=== PATIENT | female | born 1945 | race Caucasian/White ===

== ENCOUNTER 2018-09-27 15:12 | Inpatient (IN) ==
--- NOTE | 2018-09-27 16:26 | ED ---
HPI General Chief Complaint: Abdominal Pain Stated Complaint: ABD Pain Time Seen by Provider: 09/27/18 16:15 Source: patient Mode of arrival: ambulatory Limitations: no limitations History of Present Illness HPI narrative: 73-year-old woman presents to the emergency department complaining of abdominal pain. She was in [place] recently where she is from. She reports while there she got 2 days of nausea vomiting diarrhea without significant felt well since she has been back. Over the past 4-5 days she has had worsening generalized abdominal pain, worse in the periumbilical region, no lateralization. She has been more fatigued. She is had more nausea. Bowel movements been normal. Last bowel movement was this morning. Appetite's been down. No other aggravating or alleviating factors. No other complaints. Related Data Home Medications Medication Instructions Recorded Confirmed amlodipine [Norvasc] 2.5 mg PO DAILY 09/27/18 09/27/18 fluticasone-salmeterol [Advair 1 puff INHALATION Q12H 09/27/18 09/27/18 Diskus] levothyroxine 88 mcg PO DAILY 09/27/18 09/27/18 Allergies Allergy/AdvReac Type Severity Reaction Status Date / Time No Known Allergies Allergy Verified 09/27/18 16:07 Review of Systems ROS: all other systems reviewed are negative [facility] Medical History Medical History Asthma (Acute) Hypertension (Acute) Hypothyroid (Acute) Surgical History Surgical History No history of previous surgery (Acute) Social History Social History Substance History: No History of Abuse Second Hand Smoke Exposure: No Smoking Status: Never smoker How Often Do You Have a Drink Containing Alcohol: Never Recent Travel in [facility] within the Last 8 Weeks: No Recent Out of Country Travel within the Last 8 Weeks: Yes Immunization History Tetanus Immunization: <5 Years Exam Narrative Exam Narrative: GENERAL: Well-appearing 73-year-old woman, no acute distress. SKIN: Focused skin assessment warm/dry. NECK: Trachea midline. No JVD. CARDIOVASCULAR: Regular rate and rhythm. No murmur appreciated. RESPIRATORY: No accessory muscle use. Clear to auscultation. Breath sounds equal bilaterally. GASTROINTESTINAL: Abdomen is flat and soft. Upper abdominal tenderness, especially in the epigastrium and right upper quadrant. Positive Paz's. MUSCULOSKELETAL: No obvious deformities. No clubbing. No cyanosis. No edema. NEUROLOGICAL: Awake and alert. No obvious cranial nerve deficits. Motor grossly within normal limits. Normal speech. PSYCHIATRIC: Appropriate mood and affect; insight and judgment normal. Course Initial Documented Vital Signs Temperature 98.5 F 09/27/18 15:19 Pulse Rate 88 09/27/18 15:19 Respiratory Rate 17 09/27/18 15:19 Blood Pressure 167/82 H 09/27/18 15:19 Pulse Oximetry 98 09/27/18 15:19 Last Documented Vital Signs Temperature 98.1 F 09/27/18 15:20 Pulse Rate 80 09/27/18 17:52 Respiratory Rate 16 09/27/18 18:22 Blood Pressure 157/80 H 09/27/18 15:20 Pulse Oximetry 98 09/27/18 17:52 Medical Decision Making [facility] Narrative Medical decision making narrative: Is a 73-year-old woman with generalized abdominal discomfort, nonlateralizing, ongoing for the past couple days. On exam she is tender in epigastrium, in the right upper quadrant, is also tender in the left. This is likely pancreatitis gastritis or cholecystitis. Will check labs, check right upper quadrant ultrasound, reassess. If negative, recommend treatment acid blockers, outpatient follow-up. EKG reveals sinus rhythm with a rate of 87. Lab work has been reviewed, notable for a troponin of 0.16. The patient is primarily having epigastric pain that radiates into the back. A CTA of the aorta has been ordered. The patient was given aspirin, morphine. Patient was signed out to Paulina Schmitz PA-C to follow-up on the CTA results , ultimately the patient will require admission. CTA reveals aorta normal caliber without dissection. Multiple tiny pulmonary nodules and a 2.6 x 1.8 cm nodule in the left axilla are noted. These can be followed by outpatient basis. The findings were discussed with the patient and her family members at bedside. I palpated the nodule in the left axilla. It is nodular, mobile, non-tender. I suspect a lipoma. 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 She also reports a history of pulmonary nodules in the past but will follow these on an outpatient basis. She will be provided with a copy of the CTA results on discharge. The patient and her family are agreeable to admission. I spoke with who agrees to accept the patient to the medicine service. Please see medicine notes for disposition. Medical Screen Exam Complete: Yes Emergency Medical Condition: Yes Lab Data Result diagrams: 09/27/18 16:46 09/27/18 16:46 Lab Results 09/27/18 09/27/18 Range/Units 16:46 16:46 WBC 10.7 (4.0-11.0) th/mm3 RBC 4.81 (4.00-5.30) mil/mm3 Hgb 14.1 (11.6-15.3) gm/dL Hct 41.7 (35.0-46.0) % MCV 86.6 (80.0-100.0) fL MCH 29.4 (27.0-34.0) pg MCHC 33.9 (32.0-36.0) % RDW 13.0 (11.6-17.2) % Plt Count 291 (150-450) th/mm3 MPV 9.0 (7.0-11.0) fL Neut % (Auto) 72.7 H (16.0-70.0) % Lymph % (Auto) 12.3 (9.0-44.0) % Emery % (Auto) 6.4 (0.0-8.0) % Eos % (Auto) 8.1 H (0.0-4.0) % Baso % (Auto) 0.5 (0.0-2.0) % Neut # (Auto) 7.8 H (1.8-7.7) th/mm3 Lymph # (Auto) 1.3 (1.0-4.8) th/mm3 Emery # (Auto) 0.7 (0.0-0.9) th/mm3 Eos # (Auto) 0.9 H (0.0-0.4) th/mm3 Baso # (Auto) 0.1 (0.0-0.2) th/mm3 WBC Differential . Differential Comment Auto diff final Sodium 132 L (136-145) meq/L Potassium 4.2 (3.5-5.1) meq/L Chloride 101 (98-107) meq/L Carbon Dioxide 24.3 (21.0-32.0) meq/L Anion Gap 7 (5-15) meq/L BUN 23 H (7-18) mg/dL Creatinine 0.59 (0.50-1.00) mg/dL Estimated GFR Greater than 89 (>89) mL/min Random Glucose 105 (74-106) mg/dL Calcium 8.9 (8.5-10.1) mg/dL Magnesium 2.2 (1.5-2.5) mg/dL Total Bilirubin 1.0 (0.2-1.0) mg/dL AST 38 H (15-37) U/L ALT 64 H (10-53) U/L Alkaline Phosphatase 217 H (45-117) U/L Troponin I 0.16 H (0.02-0.05) ng/mL Total Protein 7.5 (6.4-8.2) g/dL Albumin 3.5 (3.4-5.0) g/dL Lipase 76 (73-393) U/L Imaging Data Radiologist's impression: Gallbladder Ultrasound 09/27/18 16:23 CONCLUSION: 1. Gallbladder sludge. 2. Right renal cyst. 3. Echogenic portal triads may indicate underlying hepatitis. This can be correlated with laboratory values. Thoracic Aorta CT 09/27/18 17:52 CONCLUSION: 1. Aorta is normal in caliber without dissection. 2. Multiple tiny pulmonary nodules. These measure 2 to 5 mm in size. Current Fleischner guidelines suggest a repeat CT of the thorax in 6-12 months to document stability. 3. 2.6 x 1.8 cm nodule within the left axilla adjacent to the left lateral margin of the pectoralis major muscle adjacent to the chest wall. This is nonspecific in its CT appearance. Clinical palpation of the nodule is suggested. An outpatient follow-up ultrasound of the left axilla could be considered as follow-up. Chest X-Ray 09/27/18 17:53 CONCLUSION: No acute findings. Discharge Plan Discharge Order Discharge Orders: ED Use Only Admit Order (Routine); Ordered 09/27/18 Ordered By: Paulina Schmitz Physicians Team ED Provider: Ace Gloria ED Midlevel Provider: Paulina Schmitz Primary Care Provider: Sylvia Piña Rxs /Orders / Referrals /Forms Prescriptions: No Action amlodipine [Norvasc] 2.5 mg Tablet 2.5 mg PO DAILY RF: 0 fluticasone-salmeterol [Advair Diskus] 100-50 mcg/dose Blister With Device 1 puff INHALATION Q12H RF: 0 levothyroxine 88 mcg Capsule 88 mcg PO DAILY RF: 0 Discharge Interventions Interventions: Vital Signs Last Done: 09/27/18 15:20 Status ED Status: Pending Admission
[2018-09-27] MEDS ORDERED: Aluminum/Magnesium/Simethacone Susp 30 ML UDC PO ONE (16:29)
[2018-09-27] MEDS ORDERED: Famotidine PF Inj 20 MG/2 ML Vial IV.PUSH ONE (16:29)
[2018-09-27 16:59] LABS: Baso # (Auto) 0.1 th/mm3 (0.0-0.2); Baso % (Auto) 0.5 % (0.0-2.0); Eos # (Auto) 0.9 th/mm3 (0.0-0.4); Eos % (Auto) 8.1 % (0.0-4.0); Hematocrit 41.7 % (35.0-46.0); Hemoglobin 14.1 gm/dL (11.6-15.3); Lymph # (Auto) 1.3 th/mm3 (1.0-4.8); Lymph % (Auto) 12.3 % (9.0-44.0); Mean Corpuscular HGB Conc 33.9 % (32.0-36.0); Mean Corpuscular Hemoglobin 29.4 pg (27.0-34.0); Mean Corpuscular Volume 86.6 fL (80.0-100.0); Mono # (Auto) 0.7 th/mm3 (0.0-0.9); Mono % (Auto) 6.4 % (0.0-8.0); Neut # (Auto) 7.8 th/mm3 (1.8-7.7); Neut % (Auto) 72.7 % (16.0-70.0); Platelet Count 291 th/mm3 (150-450); Red Blood Count 4.81 mil/mm3 (4.00-5.30); White Blood Count 10.7 th/mm3 (4.0-11.0)
[2018-09-27 17:23] LABS: Albumin 3.5 g/dL (3.4-5.0); Anion Gap 7 meq/L (5-15); Aspartate Aminotransferase 38 U/L (15-37); Blood Urea Nitrogen 23 mg/dL (7-18); Calcium 8.9 mg/dL (8.5-10.1); Carbon Dioxide 24.3 meq/L (21.0-32.0); Chloride 101 meq/L (98-107); Glomerular Filtration Rate Greater Than 89 mL/min (>89); Glucose,Random 105 mg/dL (74-106); Lipase 76 U/L (73-393); Magnesium 2.2 mg/dL (1.5-2.5); Potassium 4.2 meq/L (3.5-5.1); Sodium 132 meq/L (136-145)
[2018-09-27 17:29] LABS: Alanine Aminotransferase 64 U/L (10-53); Alkaline Phosphatase 217 U/L (45-117); Total Protein 7.5 g/dL (6.4-8.2); Troponin I 0.16 ng/mL (0.02-0.05)
[2018-09-27] MEDS ORDERED: Morphine Inj 4 MG/ML Vial IV.PUSH ONE (17:48)
--- NOTE | 2018-09-27 17:53 | US ---
EXAM DATE: 09/27/2018 5:49 PM EST AGE/SEX: 73 years / Female INDICATIONS: Right upper quadrant pain. CLINICAL DATA: This is the patient's initial encounter. Patient reports that signs and symptoms have been present for 4 - 6 days and indicates a pain score of 9/10. MEDICAL/SURGICAL HISTORY: Hypertension. Hypothyroidism. Asthma. None. COMPARISON: No prior exams available for comparison. MEASUREMENTS: Liver:__ 16.6 cm. Common Bile Duct:__ 2mm. FINDINGS: Liver: No biliary ductal dilatation. The portal triads are echogenic. This can be seen with hepatiti s. The main portal vein is patent with hepatopedal flow. Portal Vein: Hepatopedal flow seen in portal vein. Common Duct: No intraluminal mass or stone visualized. Gallbladder: Gallbladder demonstrates no wall thickening. There is a large amount of sludge seen wit hin the gallbladder. Pancreas: The visualized portions are within normal limits Right Kidney: 1.1 cm simple cyst at the midpole of right kidney. Other: None. CONCLUSION: 1. Gallbladder sludge. 2. Right renal cyst. 3. Echogenic portal triads may indicate underlying hepatitis. This can be correlated with laboratory values. Electronically signed by: Austin Celis MD Board Certified Radiologist 09/27/2018 5:52 PM EST
--- NOTE | 2018-09-27 19:02 | XR ---
EXAM DATE: 09/27/2018 6:45 PM EST AGE/SEX: 73 years / Female INDICATIONS: Chest pain. CLINICAL DATA: This is the patient's initial encounter. Patient reports that signs and symptoms have been present for 1 day and indicates a pain score of 2/10. MEDICAL/SURGICAL HISTORY: . Hypertension. Hypothyroidism. Asthma. None. COMPARISON: No prior exams available for comparison. FINDINGS: A single AP view of the chest demonstrates the lungs to be symmetrically aerated without evidence of mass, infiltrate or effusion. The cardiomediastinal contours are unremarkable except tortuous aorta. Osseous structures are intact. CONCLUSION: No acute findings. Electronically signed by: Juan Pablo Hebert MD Board Certified Radiologist 09/27/2018 7:01 PM EST
--- NOTE | 2018-09-27 19:06 | CT ---
EXAM DATE: 09/27/2018 6:54 PM EST AGE/SEX: 73 years / Female INDICATIONS: Fatigue and back pain CLINICAL DATA: This is the patient's initial encounter. Patient reports that signs and symptoms have been present for 1 day and indicates a pain score of 5/10. MEDICAL/SURGICAL HISTORY: Hypertension. Asthma. None. RADIATION DOSE: 5.48 CTDI (mGy) COMPARISON: No prior exams available for comparison. TECHNIQUE: Volumetric scanning was performed using a multi-row detector CT scanner during bolus infu telma of 70 ml Omnipaque 350 (iohexol) nonionic water-soluble contrast as a single exam dose. The da ta was post processed with a variety of visualization algorithms including full volume maximum intens ity projection, multi-planar sliding thin slab reformation, curved planar reformation, and surface re ndering techniques. Using automated exposure control and adjustment of the mA and/or kV according to patient size, radiation dose was kept as low as reasonably achievable to obtain optimal diagnostic q uality images. DICOM format image data is available electronically for review and comparison. FINDINGS: THORACIC/ABDOMINAL AORTA: The aorta is normal in caliber and course. No dissection, aneurysm, or occl usion. Inflow vessels are patent. The celiac, SMA, LAURA, and renal arteries are patent. 3 arch vessels are noted. They are patent. Mild calcified plaque involving the thoracic arch but no stenosis. HEART AND MEDIASTINUM: The heart is normal in size. A small amount of pericardial fluid is noted vert ically within the superior pericardial recess. No large pericardial effusion observed. No adenopathy. Pulmonary arteries are normal in caliber. LUNG PARENCHYMA: Multiple small scattered noncalcified pulmonary nodules are seen scattered throughou t both lungs but most pronounced within the left upper lobe. These range in size from 2 to 5 mm. The largest is involving the lateral right apex. No dominant mass. No acute infiltrate. No bronchiectasis . OTHER STRUCTURES: There is a 2.6 x 1.8 cm nodule within the left axilla. This is directly adjacent to the lateral margin of the pectoralis major muscle adjacent to the chest wall. Hounsfield units are 2 9. It is smoothly marginated. The remaining axillary structures are unremarkable bilaterally. Abdomin al visceral structures are unremarkable. CONCLUSION: 1. Aorta is normal in caliber without dissection. 2. Multiple tiny pulmonary nodules. These measure 2 to 5 mm in size. Current Fleischner guidelines s uggest a repeat CT of the thorax in 6-12 months to document stability. 3. 2.6 x 1.8 cm nodule within the left axilla adjacent to the left lateral margin of the pectoralis major muscle adjacent to the chest wall. This is nonspecific in its CT appearance. Clinical palpation of the nodule is suggested. An outpatient follow-up ultrasound of the left axilla could be considere d as follow-up. Electronically signed by: Derrick Mobley MD Board Certified Radiologist 09/27/2018 7:05 PM EST
[2018-09-27] MEDS ORDERED: Bisacodyl 10 MG Supp RECTAL PRN (19:32)
[2018-09-27] MEDS ORDERED: Acetaminophen 325 MG Tablet PO PRN (19:32)
[2018-09-27] MEDS: Sod Chloride 0.9% Inj 1,000 ML IV.CONT SCH (20:05)
[2018-09-27 21:42] LABS: Prothrombin Time 10.1 sec (9.8-11.6)
[2018-09-27 21:56] LABS: Troponin I 0.2 ng/mL (0.02-0.05)
[2018-09-27 23:38] LABS: Bilirubin,Urine Negative (Negative); Clarity,Urine Clear (Clear); Color,Urine Yellow (Yellw/Straw); Glucose,Urine (UA) Negative (Negative); Leukocyte Esterase,Urine Large (Negative); Mucus,Urine Few /lpf (Occasional); Nitrite,Urine Negative (Negative); Specific Gravity,Urine 1.045 (1.002-1.035); Squamous Epithelial Cell,Urine 4 /hpf (0-5)
--- NOTE | 2018-09-28 02:44 | P.HPIM ---
History of Present Illness Service: [facility] Primary Care Physician: Sylvia Piña Chief Complaint: Epigastric pain History of Present Illness: 73 y/o female with a history of HTN, asthma, and hypothyroidism presented to the ER with complaints of epigastric pain for the past 5 days. She states the pain is a constant, dull, 9/10, mid epigastric region, worse with food, with radiation that extends to her back, with nausea, upon examination her pain is decreased to a 3. She denies any fevers or chills. No changes in bowel movements, denies dysuria. Inpatient Certification Inpatient Certification: I certify that the inpatient services were ordered in accordance with Medicare regulations governing the order. This includes certification that hospital inpatient services are reasonable and necessary and in the case of services not specified as inpatient-only under 42 CFR 419.22(n), that they are appropriately provided as inpatient services in accordance to with the 2-midnight benchmark under 43 CFR 412.3(e) Estimated Total Length of Stay (Days): 2 Plans for Post Hospital Care: Home [facility] Medical History Medical History Asthma (Acute) Hypertension (Acute) Hypothyroid (Acute) Surgical History Surgical History No history of previous surgery (Acute) Family History Family History Other Heart disease Social History Social History Substance History: No History of Abuse Second Hand Smoke Exposure: No Smoking Status: Never smoker How Often Do You Have a Drink Containing Alcohol: Never Recent Travel in [facility] within the Last 8 Weeks: No Recent Out of Country Travel within the Last 8 Weeks: Yes Immunization History Tetanus Immunization: <5 Years Medications and Allergies Allergies Allergy/AdvReac Type Severity Reaction Status Date / Time No Known Allergies Allergy Verified 09/27/18 16:07 Home Medications Medication Instructions Recorded Confirmed Type amlodipine [Norvasc] 2.5 mg PO DAILY 09/27/18 09/27/18 History fluticasone-salmeterol [Advair 1 puff INHALATION Q12H 09/27/18 09/27/18 History Diskus] levothyroxine 88 mcg PO DAILY 09/27/18 09/27/18 History Active Medications: Active Medications Acetaminophen (Tylenol) 650 mg PO Q4H PRN PRN Reason: Temp > 100.4 Al Hydroxide/Mg Hydroxide (Milk Of Magnesia Liq) 30 ml PO Q12H PRN PRN Reason: Mild Constipation Bisacodyl (Dulcolax Supp) 10 mg RECTAL DAILY PRN PRN Reason: SEVERE CONSITIPATION Sodium Chloride (Ns Inj) 1,000 mls @ 100 mls/hr IV.CONT .Q10H [facility] Last Admin: 09/27/18 20:05 Dose: 100 mls/hr Lactulose (Lactulose Liq) 30 ml PO DAILY PRN PRN Reason: SEVERE CONSITIPATION Ondansetron HCl (Zofran Inj) 4 mg IV.PUSH Q6H PRN PRN Reason: NAUSEA OR VOMITING Sennosides (Senokot) 17.2 mg PO Q12H PRN PRN Reason: Moderate Constipation Sodium Chloride (Ns Flush) 2 ml IV.FLUSH BID [facility] Last Admin: 09/27/18 20:40 Dose: 2 ml Sodium Chloride (Ns Flush) 2 ml IV.FLUSH PRN PRN PRN Reason: FLUSH AFTER USING IV ACCESS Physical Exam Vital signs: Vital Signs 09/27/18 15:19 09/27/18 15:20 09/27/18 17:52 Temperature 98.5 F 98.1 F Pulse Rate 88 80 80 Respiratory Rate 17 17 Blood Pressure 167/82 H 157/80 H Pulse Oximetry 98 98 98 09/27/18 18:21 09/27/18 18:22 09/27/18 21:23 Temperature Pulse Rate 78 Respiratory Rate 17 16 16 Blood Pressure 126/71 Pulse Oximetry 97 Intake & Output 09/27/18 09/27/18 09/28/18 06:59 18:59 06:59 Weight 61.235 kg Other: # Voids 1 Narrative: GENERAL: well nourished in no distress SKIN: Warm and dry. no open lesions EYES: No scleral icterus. No injection or drainage. NECK: Supple, trachea midline. No JVD or lymphadenopathy. CARDIOVASCULAR: Regular rate and rhythm without murmurs, gallops, or rubs. RESPIRATORY: Breath sounds equal bilaterally. No accessory muscle use. GASTROINTESTINAL: Abdomen soft, epigastric tenderness, nondistended. MUSCULOSKELETAL: No cyanosis, or edema. Results Labs CBC & Chem 7: 09/27/18 16:46 09/27/18 16:46 Imaging Impressions Gallbladder Ultrasound 09/27/18 16:23 CONCLUSION: 1. Gallbladder sludge. 2. Right renal cyst. 3. Echogenic portal triads may indicate underlying hepatitis. This can be correlated with laboratory values. Thoracic Aorta CT 09/27/18 17:52 CONCLUSION: 1. Aorta is normal in caliber without dissection. 2. Multiple tiny pulmonary nodules. These measure 2 to 5 mm in size. Current Fleischner guidelines suggest a repeat CT of the thorax in 6-12 months to document stability. 3. 2.6 x 1.8 cm nodule within the left axilla adjacent to the left lateral margin of the pectoralis major muscle adjacent to the chest wall. This is nonspecific in its CT appearance. Clinical palpation of the nodule is suggested. An outpatient follow-up ultrasound of the left axilla could be considered as follow-up. Chest X-Ray 09/27/18 17:53 CONCLUSION: No acute findings. Caprini VTE Risk Assessment Caprini VTE Risk Assessment: No/Low Risk (score <= 1) Caprini Risk Assessment Model: Point Value = 1 Point Value = 2 Point Value = 3 Point Value = 5 Age 41-60 Minor surgery BMI > 25 kg/m2 Swollen legs Varicose veins or History of unexplained or recurrent spontaneous Oral contraceptives or hormone replacement Sepsis (< 1 month) Serious lung disease, including pneumonia (< 1 month) Abnormal pulmonary function Acute myocardial infarction Congestive heart failure (< 1 month) History of inflammatory bowel disease Medical patient at bed rest Age 61-74 Arthroscopic surgery Major open surgery (> 45 min) Laparoscopic surgery (> 45 min) Malignancy Confined to bed (> 72 hours) Immobilizing plaster cast Central venous access Age >= 75 History of VTE Family history of VTE Factor V Leiden Prothrombin [id number] Lupus anticoagulant Anticardiolipin antibodies Elevated serum homocysteine Heparin-induced thrombocytopenia Other congenital or acquired thrombophilia Stroke (< 1 month) Elective arthroplasty Hip, pelvis, or leg fracture Acute spinal cord injury (< 1 month) Prophylaxis Regimen: Total Risk Factor Score Risk Level Prophylaxis Regimen 0-1 Low Early ambulation 2 Moderate Order ONE of the following: *Sequential Compression Device (SCD) *Heparin 5000 units SQ BID 3-4 Higher Order ONE of the following medications: *Heparin 5000 units SQ TID *Enoxaparin/Lovenox 40 mg SQ daily (WT < 150 kg, CrCl > 30 mL/min) *Enoxaparin/Lovenox 30 mg SQ daily (WT < 150 kg, CrCl > 10-29 mL/min) *Enoxaparin/Lovenox 30 mg SQ BID (WT < 150 kg, CrCl > 30 mL/min) AND/OR *Sequential Compression Device (SCD) 5 or more Highest Order ONE of the following medications: *Heparin 5000 units SQ TID (Preferred with Epidurals) *Enoxaparin/Lovenox 40 mg SQ daily (WT < 150 kg, CrCl > 30 mL/min) *Enoxaparin/Lovenox 30 mg SQ daily (WT < 150 kg, CrCl > 10-29 mL/min) *Enoxaparin/Lovenox 30 mg SQ BID (WT < 150 kg, CrCl > 30 mL/min) AND *Sequential Compression Device (SCD) Assessment and Plan Plan 73 y/o female with a history of HTN, asthma, and hypothyroidism presented to the ER with complaints of epigastric pain for the past 5 days. Epigastric pain non specific Aorta CT reviewed and shows no dissection Gallbladder US shows sludge -HIDA scan -Pepcid IV Q12Hr -NPO Elevated troponin, atypical pain, troponin trended down -Consult cardiology for evaluation -Will hold on heparin drip for now HTN, chronic -Resume home medications -monitor vitals Hypothyroidism, chronic -Resume home medications DVT prophylaxis: SCDs
[2018-09-28] MEDS ORDERED: Sincalide Inj 1.2 MCG in Sodium Chlor 0.9% Inj 50 ML IV.SIG ONE (02:53)
[2018-09-28] MEDS: Sod Chloride 0.9% Inj 1,000 ML IV.CONT SCH ×3 (06:36→17:55)
[2018-09-28 07:53] LABS: Baso % (Auto) 0.4 % (0.0-2.0); Eos % (Auto) 11.8 % (0.0-4.0); Hematocrit 38.6 % (35.0-46.0); Hemoglobin 13.1 gm/dL (11.6-15.3); Lymph # (Auto) 1.6 th/mm3 (1.0-4.8); Lymph % (Auto) 19.9 % (9.0-44.0); Mean Corpuscular HGB Conc 33.8 % (32.0-36.0); Mean Corpuscular Hemoglobin 29.1 pg (27.0-34.0); Mean Platelet Volume 9.3 fL (7.0-11.0); Mono # (Auto) 0.6 th/mm3 (0.0-0.9); Mono % (Auto) 7.7 % (0.0-8.0); Neut % (Auto) 60.2 % (16.0-70.0); Platelet Count 265 th/mm3 (150-450); Red Blood Count 4.49 mil/mm3 (4.00-5.30); White Blood Count 8.2 th/mm3 (4.0-11.0)
[2018-09-28 08:21] LABS: Albumin 3.1 g/dL (3.4-5.0); Anion Gap 6 meq/L (5-15); Aspartate Aminotransferase 52 U/L (15-37); Blood Urea Nitrogen 17 mg/dL (7-18); Calcium 8.7 mg/dL (8.5-10.1); Carbon Dioxide 27.2 meq/L (21.0-32.0); Chloride 103 meq/L (98-107); Glomerular Filtration Rate Greater Than 89 mL/min (>89); Glucose,Random 91 mg/dL (74-106); Potassium 4.1 meq/L (3.5-5.1); Sodium 136 meq/L (136-145)
[2018-09-28 08:22] LABS: Alanine Aminotransferase 77 U/L (10-53)
[2018-09-28 08:24] LABS: Alkaline Phosphatase 253 U/L (45-117); Total Protein 6.9 g/dL (6.4-8.2)
[2018-09-28] MEDS ORDERED: amLODIPine 5 MG Tablet PO SCH (09:00)
--- NOTE | 2018-09-28 10:39 | P.PNIM ---
Subjective Interval history: 73 yo female with h/o hypothyroidism and HTN admitted for epigastric/chest pain radiating to the back found to have troponin elevation without ECG changes. This morning she feels well and has no chest/abdominal pain or shortness of breath. Physical Exam Vital signs: Vital Signs 09/27/18 15:19 09/27/18 15:20 09/27/18 17:52 Temperature 98.5 F 98.1 F Pulse Rate 88 80 80 Respiratory Rate 17 17 Blood Pressure 167/82 H 157/80 H Pulse Oximetry 98 98 98 09/27/18 18:21 09/27/18 18:22 09/27/18 21:23 Temperature Pulse Rate 78 Respiratory Rate 17 16 16 Blood Pressure 126/71 Pulse Oximetry 97 09/28/18 07:03 09/28/18 09:09 Temperature Pulse Rate 73 66 Respiratory Rate 18 18 Blood Pressure 174/84 H 156/76 H Pulse Oximetry 100 99 Intake & Output 09/27/18 09/28/18 09/28/18 18:59 06:59 18:59 Intake Total 1000 / 1000 Balance 1000 / 1000 Weight 61.235 kg Intake: IV 1000 / 1000 NS Inj 1,000 ML @ 100 mls/hr IV 1000 / 1000 .CONT .Q10H MARK Rx#:[id number] Other: # Voids 1 Narrative: GENERAL: WDWN adult female, NAD, comfortable SKIN: Warm and dry. no open lesions EYES: No scleral icterus. No injection or drainage. NECK: Supple, trachea midline. No JVD or lymphadenopathy. CARDIOVASCULAR: NRRR without murmurs, gallops, or rubs. RESPIRATORY: Breath sounds equal bilaterally. No crackles or wheezes. No accessory muscle use. GASTROINTESTINAL: Abdomen soft, mild epigastric tenderness, nondistended. MUSCULOSKELETAL: No cyanosis, or edema. Results - Labs CBC & Chem 7: 09/28/18 06:31 09/28/18 06:31 Laboratory Results - last 24 hr 09/27/18 09/27/18 09/27/18 16:46 16:46 16:46 WBC 10.7 RBC 4.81 Hgb 14.1 Hct 41.7 MCV 86.6 MCH 29.4 MCHC 33.9 RDW 13.0 Plt Count 291 MPV 9.0 Neut % (Auto) 72.7 H Lymph % (Auto) 12.3 [place] % (Auto) 6.4 Eos % (Auto) 8.1 H Baso % (Auto) 0.5 Neut # (Auto) 7.8 H Lymph # (Auto) 1.3 [place] # (Auto) 0.7 Eos # (Auto) 0.9 H Baso # (Auto) 0.1 WBC Differential . Differential Comment Auto diff final PT INR APTT Sodium 132 L Potassium 4.2 Chloride 101 Carbon Dioxide 24.3 Anion Gap 7 BUN 23 H Creatinine 0.59 Estimated GFR Greater than 89 Random Glucose 105 Calcium 8.9 Magnesium 2.2 Total Bilirubin 1.0 AST 38 H ALT 64 H Alkaline Phosphatase 217 H Total Creatine Kinase Cancelled Troponin I 0.16 H Total Protein 7.5 Albumin 3.5 Lipase 76 Urine Color Urine Clarity Urine pH Ur Specific Gray Urine Protein Urine Glucose (UA) Urine Ketones Urine Occult Blood Urine Nitrate Urine Bilirubin Urine Urobilinogen Ur Leukocyte Esterase Urine RBC Urine WBC Ur Squamous Epith Cells Urine Mucus Micro UA Comment Ur Microscopic Review Urine Culture Comments 09/27/18 09/27/18 09/27/18 20:35 20:35 23:00 WBC RBC Hgb Hct MCV MCH MCHC RDW Plt Count MPV Neut % (Auto) Lymph % (Auto) [place] % (Auto) Eos % (Auto) Baso % (Auto) Neut # (Auto) Lymph # (Auto) [place] # (Auto) Eos # (Auto) Baso # (Auto) WBC Differential Differential Comment PT 10.1 INR 1.0 APTT 29.0 Sodium Potassium Chloride Carbon Dioxide Anion Gap BUN Creatinine Estimated GFR Random Glucose Calcium Magnesium Total Bilirubin AST ALT Alkaline Phosphatase Total Creatine Kinase 52 Troponin I 0.20 H Total Protein Albumin Lipase Urine Color Yellow Urine Clarity Clear Urine pH 6.0 Ur Specific Gray 1.045 H Urine Protein Negative Urine Glucose (UA) Negative Urine Ketones 20 Urine Occult Blood Negative Urine Nitrate Negative Urine Bilirubin Negative Urine Urobilinogen Less than 2 Ur Leukocyte Esterase Large H Urine RBC 4 H Urine WBC 4 Ur Squamous Epith Cells 4 Urine Mucus Few H Micro UA Comment Culture not ind Ur Microscopic Review Not Reportable Urine Culture Comments Culture not ind 09/28/18 09/28/18 09/28/18 01:45 06:31 06:31 WBC 8.2 RBC 4.49 Hgb 13.1 Hct 38.6 MCV 86.0 MCH 29.1 MCHC 33.8 RDW 13.0 Plt Count 265 MPV 9.3 Neut % (Auto) 60.2 Lymph % (Auto) 19.9 [place] % (Auto) 7.7 Eos % (Auto) 11.8 H Baso % (Auto) 0.4 Neut # (Auto) 5.0 Lymph # (Auto) 1.6 [place] # (Auto) 0.6 Eos # (Auto) 1.0 H Baso # (Auto) 0.0 WBC Differential . Differential Comment Auto diff final PT INR APTT Sodium 136 Potassium 4.1 Chloride 103 Carbon Dioxide 27.2 Anion Gap 6 BUN 17 Creatinine 0.61 Estimated GFR Greater than 89 Random Glucose 91 Calcium 8.7 Magnesium Total Bilirubin 1.2 H AST 52 H ALT 77 H Alkaline Phosphatase 253 H Total Creatine Kinase Troponin I 0.14 H Total Protein 6.9 D Albumin 3.1 L Lipase Urine Color Urine Clarity Urine pH Ur Specific Gray Urine Protein Urine Glucose (UA) Urine Ketones Urine Occult Blood Urine Nitrate Urine Bilirubin Urine Urobilinogen Ur Leukocyte Esterase Urine RBC Urine WBC Ur Squamous Epith Cells Urine Mucus Micro UA Comment Ur Microscopic Review Urine Culture Comments - Imaging Impressions Gallbladder Ultrasound 09/27/18 16:23 CONCLUSION: 1. Gallbladder sludge. 2. Right renal cyst. 3. Echogenic portal triads may indicate underlying hepatitis. This can be correlated with laboratory values. Thoracic Aorta CT 09/27/18 17:52 CONCLUSION: 1. Aorta is normal in caliber without dissection. 2. Multiple tiny pulmonary nodules. These measure 2 to 5 mm in size. Current Fleischner guidelines suggest a repeat CT of the thorax in 6-12 months to document stability. 3. 2.6 x 1.8 cm nodule within the left axilla adjacent to the left lateral margin of the pectoralis major muscle adjacent to the chest wall. This is nonspecific in its CT appearance. Clinical palpation of the nodule is suggested. An outpatient follow-up ultrasound of the left axilla could be considered as follow-up. Chest X-Ray 09/27/18 17:53 CONCLUSION: No acute findings. Assessment and Plan - Assessment (1) Epigastric pain Code(s): R10.13 - Epigastric pain Status: Resolved (2) Elevated troponin Code(s): R74.8 - Abnormal levels of other serum enzymes Status: Acute (3) Hypothyroid Code(s): E03.9 - Hypothyroidism, unspecified Status: Chronic (4) Essential hypertension Code(s): I10 - Essential (primary) hypertension Status: Chronic (5) Pulmonary nodules Code(s): R91.8 - Other nonspecific abnormal finding of lung field Status: Acute - Plan 73 yo female admitted with: Epigastric Pain Clinically improved, still mildly tender LFTs slightly elevated but improving US abdomen showed changes which could be suggestive of hepatitis however history and exam not classic, other labs with no evidence of acute liver failure. Gallbladder with sludge but otherwise normal Troponin elevation TnI was ~0.15, has come down now ECG with NSR, no ST-T changes Clinically now asymptomatic CTA chest showed no dissection * No need to heparinize for now * Consult cardiology for recommendation - may need diagnostic catheterization, inpatient vs outpatient * Patient family known to Dr. Johnson who agreed to see her, appreciate input Pulmonary Nodules Noted incidentally on CTA * Recommended f/u CT chest in 6-12 months Essential Hypertension Not currently on medication (was on amlodipine but had a rash) BP slightly elevated in hospital, not in urgent/emergent range * F/u with PCP Hypothyroidism TSH slightly elevated, may need increased dose of Synthroid, unlikely that her current symptoms would be due to thyroid * Continue Synthroid at current dose * F/u with PCP FEN: Cardiac diet DVT: Lovenox PPX Disposition Likely DC in a.m. - Attending Attestation The exam, history, and the medical decision-making described in the above note were completed with the assistance of the resident physician. I reviewed and agree with the findings presented. I attest that I had a [id number] encounter with the patient on the same day, and personally performed and documented my assessment and findings in the medical record. Patient seen and examined. She reports epigastric pain has significantly improved. No shortness of breath or chest pressure. She has not tried a diet yet. GENERAL: This is a well-nourished, well-developed patient, in no apparent distress. CARDIOVASCULAR: Normal rate and regular rhythm without murmurs, gallops, or rubs. RESPIRATORY: Good respiratory efforts. Breath sounds equal and clear to auscultation bilaterally. GASTROINTESTINAL: Abdomen soft, mild tenderness to palpation in the midepigastric region. Normal active bowel sounds MUSCULOSKELETAL: Extremities without cyanosis, or edema. NEURO: Alert & Oriented x4 to person, place, time, situation. Moves all ext x4 PSYCH: Appropriate mood and affect. A/P: Patient admitted with epigastric pain, elevated cardiac enzymes with concern for ACS. Symptoms more related to gastritis. She is improving quickly. She was seen by cardiology and patient and family wish to proceed with outpatient stress test. Blood pressure is uncontrolled. Patient started on metoprolol. Continue to monitor. Will advance diet. If she continues to do well in the morning discharged home to follow-up outpatient with GI and cardiology. Follow-up LFTs in a.m. (3) Hypothyroid Qualifiers: Hypothyroidism type: unspecified Qualified Code(s): E03.9 - Hypothyroidism, unspecified
[2018-09-28] MEDS: Levothyroxine 88 MCG Tablet PO SCH (11:45)
[2018-09-28] MEDS: Famotidine PF Inj 20 MG/2 ML Vial IV.PUSH SCH ×2 (11:46→20:51)
--- NOTE | 2018-09-28 12:00 | NM ---
EXAM DATE: 09/28/2018 11:54 AM EST AGE/SEX: 73 years / Female INDICATIONS: Abdominal pain. CLINICAL DATA: This is the patient's initial encounter. Patient reports that signs and symptoms have been present for 4 - 6 days and indicates a pain score of 4/10. MEDICAL/SURGICAL HISTORY: Asthma. Hypertension. Hypothyroidism. Non-responsive. COMPARISON: No prior exams available for comparison. DOSE: 4.1 mCi Tc-99m mebrofenin i.v. Medication: 1.2 mcg Cholecystokinin IV No symptomatic response Cholecystokinin was administered by slow infusion over 8 minutes beginning at 60 minutes. minutes. TECHNIQUE: Following the intravenous administration of radiotracer, dynamic sequential images were pe rformed with continuous acquisition. Time-activity curves were generated. FINDINGS: Hepatic Kinetics: There is prompt uptake of radiotracer in the liver. No focal defects are seen. Ther e is normal rate of washout from the hepatic parenchyma. Biliary Clearance: Activity is first seen in the extrahepatic biliary system at 15 minutes. There is normal excretion into the small bowel. Gallbladder: Activity is first seen in the gallbladder at 20 minutes. Post-CCK: After CCK administration, there is emptying of the gallbladder with a 10% ejection fraction . Common bile duct kinetics are normal and there is no evidence of biliary obstruction. No symptomat ic response after cholecystokinin infusion. Biliary-Enteric Reflux: None observed. CONCLUSION: 1. Unremarkable HIDA scan except for poor asymptomatic contraction after CCK. Electronically signed by: Matty Glaser MD Board Certified Radiologist 09/28/2018 11:58 AM EST
[2018-09-28] MEDS: Budesonide-Formoterol 80/4.5 MCG 6.9 GM Inhaler INH SCH ×2 (12:01→20:52)
--- NOTE | 2018-09-28 13:47 | P.CONCA ---
History of Present Illness Service: Cardiology Consult date: 09/28/18 Reason for Consult: Elevated troponin Primary Care Provider: Sylvia Piña Chief Complaint: Epigastric pain History of Present Illness: Pleasant 73-year-old female with a past medical history of hypertension and hypothyroidism presented with complaints of bandlike upper abdominal pain that has been present for the past 5 days. She reports she returned from a recent stressful trip to [place] approximately 2 weeks ago upon returning she developed nausea vomiting and diarrhea, reports other family members also had similar symptoms. She denies any chest pain or shortness of breath. She admits to abdominal tenderness, when applying pressure, and belching, symptoms have been present for approximately 5 days, not worse with exertion. Gallbladder ultrasound does reveal some sludge, HIDA scan normal. LFTs elevated. Troponins mildly elevated, no EKG changes noted. Review of Systems All other systems reviewed negative except as stated in HPI Constitutional: Reports fatigue Gastrointestinal: Reports abdominal pain, Reports bloating, Reports change in stools, Reports vomiting PMFSH - History History Provided By: Patient - Medical History Medical History: Medical History (Last Reviewed 09/28/18 @ 02:55 by ALONZO Fitzgerald) Asthma Hypertension Hypothyroid - Surgical History Surgical History: Surgical History (Last Reviewed 09/28/18 @ 02:55 by ALONZO Fitzgerald) No history of previous surgery - Family History Family History: Family History (Last Reviewed 09/27/18 @ 16:26 by Matty Magdaleno MD) Other Heart disease - Tobacco History Second Hand Smoke Exposure: No Tobacco Use In Past 30 Days: No Smoking Status: Never smoker - Alcohol History How Often Do You Have a Drink Containing Alcohol: Never - Substance Use History Substance History: No History of Abuse - Travel History Recent Travel in the [facility] Within the Last 8 Weeks: No Recent Travel Out of the Country Within the Last 8 Weeks: No - Immunization History Tetanus Immunization: <5 Years Hx Influenza Vaccine This Season: Yes Medications and Allergies Allergies Allergy/AdvReac Type Severity Reaction Status Date / Time amlodipine Allergy Intermediate Rash, Verified 09/28/18 07:09 Localized Home Medications Medication Instructions Recorded Confirmed Type amlodipine [Norvasc] 2.5 mg PO DAILY 09/27/18 09/27/18 History fluticasone-salmeterol [Advair 1 puff INHALATION Q12H 09/27/18 09/27/18 History Diskus] levothyroxine 88 mcg PO DAILY 09/27/18 09/27/18 History Active Medications: Active Medications Acetaminophen (Tylenol) 650 mg PO Q4H PRN PRN Reason: Temp > 100.4 Last Admin: 09/28/18 06:34 Dose: 650 mg Al Hydroxide/Mg Hydroxide (Milk Of Magnesia Liq) 30 ml PO Q12H PRN PRN Reason: Mild Constipation Bisacodyl (Dulcolax Supp) 10 mg RECTAL DAILY PRN PRN Reason: SEVERE CONSITIPATION Budesonide/Formoterol Fumarate (Symbicort 80/4.5 Mcg Inh) 2 puff INH BID [facility] Last Admin: 09/28/18 12:01 Dose: Not Given Enalaprilat (Vasotec Inj) 1.25 mg IV.PUSH Q6H PRN PRN Reason: SBP>160, DBP>90 Last Admin: 09/28/18 13:07 Dose: 1.25 mg Famotidine (Pepcid Pf Inj) 20 mg IV.PUSH Q12HR [facility] Last Admin: 09/28/18 11:46 Dose: Not Given Sodium Chloride (Ns Inj) 1,000 mls @ 100 mls/hr IV.CONT .Q10H [facility] Last Admin: 09/28/18 13:07 Dose: 100 mls/hr Lactulose (Lactulose Liq) 30 ml PO DAILY PRN PRN Reason: SEVERE CONSITIPATION Levothyroxine Sodium (Synthroid) 88 mcg PO DAILY@0700 [facility] Last Admin: 09/28/18 11:45 Dose: Not Given Ondansetron HCl (Zofran Inj) 4 mg IV.PUSH Q6H PRN PRN Reason: NAUSEA OR VOMITING Sennosides (Senokot) 17.2 mg PO Q12H PRN PRN Reason: Moderate Constipation Sodium Chloride (Ns Flush) 2 ml IV.FLUSH BID [facility] Last Admin: 09/28/18 11:47 Dose: 2 ml Sodium Chloride (Ns Flush) 2 ml IV.FLUSH PRN PRN PRN Reason: FLUSH AFTER USING IV ACCESS Exam Vital signs: Vital Signs 09/27/18 15:19 09/27/18 15:20 09/27/18 17:52 Temperature 98.5 F 98.1 F Pulse Rate 88 80 80 Respiratory Rate 17 17 Blood Pressure 167/82 H 157/80 H Pulse Oximetry 98 98 98 09/27/18 18:21 09/27/18 18:22 09/27/18 21:23 Temperature Pulse Rate 78 Respiratory Rate 17 16 16 Blood Pressure 126/71 Pulse Oximetry 97 09/28/18 07:03 09/28/18 09:09 Temperature Pulse Rate 73 66 Respiratory Rate 18 18 Blood Pressure 174/84 H 156/76 H Pulse Oximetry 100 99 Intake & Output 09/27/18 09/28/18 09/28/18 18:59 06:59 18:59 Intake Total 1000 / 1000 1050 / 1050 Balance 1000 / 1000 1050 / 1050 Weight 61.235 kg Intake: IV 1000 / 1000 1050 / 1050 NS Inj 1,000 ML @ 100 mls/hr IV 1000 / 1000 1000 / 1000 .CONT .Q10H MARK Rx#:[id number] Other: # Voids 1 - Constitutional no acute distress, average body habitus, cooperative - Routine HEENT Exam Head: Present: normocephalic, atraumatic Eye: Present: EOMI, PERRL, normal accommodation ENT: Present: mucous membranes moist - Routine Neck Exam Present: supple - Routine Respiratory Exam Present: CTA bilaterally - Routine Cardiovascular Exam Present: RRR - Routine Abdominal Exam Present: soft, normoactive bowel sounds, tenderness - Routine Extremities Exam Present: full ROM, pulses intact - Routine Skin Exam Present: intact, warm - Routine Neurological Exam Present: alert, oriented X3 Results 09/28/18 06:31 09/28/18 06:31 Cardiac Enzymes 09/27/18 09/27/18 09/28/18 Range/Units 16:46 20:35 01:45 AST 38 H (15-37) U/L Troponin I 0.16 H 0.20 H 0.14 H (0.02-0.05) ng/mL 09/28/18 Range/Units 06:31 AST 52 H (15-37) U/L Troponin I (0.02-0.05) ng/mL Coagulation 09/27/18 Range/Units 20:35 PT 10.1 (9.8-11.6) sec APTT 29.0 (23.4-31.7) sec CBC 09/27/18 09/28/18 Range/Units 16:46 06:31 WBC 10.7 8.2 (4.0-11.0) th/mm3 RBC 4.81 4.49 (4.00-5.30) mil/mm3 Hgb 14.1 13.1 (11.6-15.3) gm/dL Hct 41.7 38.6 (35.0-46.0) % Plt Count 291 265 (150-450) th/mm3 Neut # (Auto) 7.8 H 5.0 (1.8-7.7) th/mm3 Lymph # (Auto) 1.3 1.6 (1.0-4.8) th/mm3 [place] # (Auto) 0.7 0.6 (0.0-0.9) th/mm3 Eos # (Auto) 0.9 H 1.0 H (0.0-0.4) th/mm3 Baso # (Auto) 0.1 0.0 (0.0-0.2) th/mm3 Comprehensive Metabolic Panel 09/27/18 09/28/18 Range/Units 16:46 06:31 Sodium 132 L 136 (136-145) meq/L Potassium 4.2 4.1 (3.5-5.1) meq/L Chloride 101 103 (98-107) meq/L Carbon Dioxide 24.3 27.2 (21.0-32.0) meq/L BUN 23 H 17 (7-18) mg/dL Creatinine 0.59 0.61 (0.50-1.00) mg/dL Calcium 8.9 8.7 (8.5-10.1) mg/dL AST 38 H 52 H (15-37) U/L ALT 64 H 77 H (10-53) U/L Alkaline Phosphatase 217 H 253 H (45-117) U/L Total Protein 7.5 6.9 D (6.4-8.2) g/dL Albumin 3.5 3.1 L (3.4-5.0) g/dL Intake and Output 09/27/18 09/28/18 09/28/18 22:59 06:59 14:59 Intake Total 1000 / 1000 1050 / 1050 Balance 1000 / 1000 1050 / 1050 Intake: IV 1000 / 1000 1050 / 1050 NS Inj 1,000 ML @ 100 mls/hr IV 1000 / 1000 1000 / 1000 .CONT .Q10H MARK Rx#:[id number] Other: # Voids 1 Weight 61.235 kg - Imaging and Cardiology Imaging: Impressions Gallbladder Ultrasound 09/27/18 16:23 CONCLUSION: 1. Gallbladder sludge. 2. Right renal cyst. 3. Echogenic portal triads may indicate underlying hepatitis. This can be correlated with laboratory values. Thoracic Aorta CT 09/27/18 17:52 CONCLUSION: 1. Aorta is normal in caliber without dissection. 2. Multiple tiny pulmonary nodules. These measure 2 to 5 mm in size. Current Fleischner guidelines suggest a repeat CT of the thorax in 6-12 months to document stability. 3. 2.6 x 1.8 cm nodule within the left axilla adjacent to the left lateral margin of the pectoralis major muscle adjacent to the chest wall. This is nonspecific in its CT appearance. Clinical palpation of the nodule is suggested. An outpatient follow-up ultrasound of the left axilla could be considered as follow-up. Chest X-Ray 09/27/18 17:53 CONCLUSION: No acute findings. Bile Acid Absorption NM 09/28/18 00:00 CONCLUSION: 1. Unremarkable HIDA scan except for poor asymptomatic contraction after CCK. EKG interpretations - Dysrhythmias Sinus rhythms and dysrhythmias: sinus rhythm Assessment and Plan - Plan Assessment Elevated troponin Abdominal pain Hypertension Plan -Patient is chest pain-free, mild elevation in troponins, no cardiac history, EKG normal. Nuclear stress test verses heart cath discussed in detail. -We will plan to start low-dose beta-tiana and baby aspirin. Will hold off on statin at this time due to elevated LFTs. -Currently n.p.o., continues to have abdominal pain, HIDA scan normal, abdominal ultrasound reveals sludge, LFTs elevated. Will consult GI. -Will need to advance diet prior to discharge. Patient was seen and evaluated by Dr. Johnson who participated in care management decision making The exam, history, and the medical decision-making described in the above note were completed with the assistance of the mid-level provider. I reviewed and agree with the findings presented. I attest that I had a [id number] encounter with the patient on the same day, and personally performed and documented my assessment and findings in the medical record. Has abdominal discomfort and LFTs and gallbladder sludge; no SOB or anginal pain will do cardiac pang for troponin. Discussed with Becky Boyd in detail. Code Status: Full Code Discussed Condition With: Dr. vazquez RN and patients grand daughter
[2018-09-28] MEDS ORDERED: Acetaminophen 325 MG Tablet PO ONE (13:50)
--- NOTE | 2018-09-28 19:33 | MR ---
EXAM DATE: 09/28/2018 7:23 PM EST AGE/SEX: 73 years / Female INDICATIONS: Abdominal pain. CLINICAL DATA: This is the patient's initial encounter. Patient reports that signs and symptoms have been present for 2 days and indicates a pain score of 5/10. MEDICAL/SURGICAL HISTORY: Hypertension. None. COMPARISON: [facility], CTA THOR ABD AORTA W CONTRAST W 3D, 09/27/2018. . TECHNIQUE: Multiplanar, multisequence images of the abdomen were obtained without contrast including dedicated cholangiographic images. FINDINGS: LIVER: The liver is homogeneous and normal in signal intensity with no focal defects. INTRAHEPATIC BILE DUCTS: There is no intrahepatic biliary ductal dilatation. COMMON BILE DUCT: The common bile duct is normal in caliber (diameter measures 5 mm.) Definitive eval uation is limited due to patient motion artifact. However there are no significant intrahepatic ducta l filling defects. GALLBLADDER: There is moderate pericholecystic fluid. Gallbladder is mildly distended. No significant gallbladder wall thickening or gallstones. PANCREAS: The pancreas appears normal in signal with no focal parenchymal abnormalities. The pancreat ic duct is normal in caliber with no filling defects, or obstructing lesions identified. CONCLUSION: 1. Limited examination due to patient motion. 2. Apparent interval development of pericholecystic fluid without gallstones or significant gallblad anuradha wall thickening. HIDA scan from earlier today demonstrates a patent cystic duct. Although pericho lecystic fluid is nonspecific, cannot exclude acalculus cholecystitis. Electronically signed by: Cristo Verdin MD Board Certified Radiologist 09/28/2018 7:32 PM EST
--- NOTE | 2018-09-28 20:21 | ECG ---
Date Performed: 09/27/2018 Time Performed: 16:55:25 PTAGE: 73 years EKG: Sinus rhythm NORMAL ECG PREVIOUS TRACING 09/27/2018 @ 16.55 Since the previous tracing, no significant change noted DOCTOR: Ernesto Johnson Interpretating Date/Time 09/28/2018 20:20:13
--- NOTE | 2018-09-28 20:22 | ECG ---
Date Performed: 09/28/2018 Time Performed: 02:25:57 PTAGE: 73 years EKG: Sinus rhythm NORMAL ECG PREVIOUS TRACING : 09/27/2018 16.55 Since the previous tracing, no significant change noted DOCTOR: Ernesto Johnson Interpretating Date/Time 09/28/2018 20:20:39
--- NOTE | 2018-09-28 20:22 | ECG ---
Date Performed: 09/28/2018 Time Performed: 07:08:05 PTAGE: 73 years EKG: Sinus rhythm NORMAL ECG PREVIOUS TRACING 09/28/18 @ 02.25.57 Since the previous tracing, no significant change noted DOCTOR: Ernesto Johnson Interpretating Date/Time 09/28/2018 20:21:41
[2018-09-28] MEDS: Metoprolol Tartrate 25 MG Tablet PO SCH (20:52)
--- NOTE | 2018-09-28 21:22 | P.CONGI ---
History of Present Illness Consult date: 09/28/18 Consult reason: Abdominal pain with elevated LFTs Chief complaint: Elevated troponin, epigastric pain History of Present Illness: Patient is a pleasant 73-year-old female with past medical history significant for hypertension and hypothyroidism. Patient also has met history significant for asthma. Patient denies significant surgical history. Patient presented to [facility] with complaint of upper abdominal bandlike pain onset 5 days ago. Patient also endorses she returned from a trip to [place] about 2 weeks ago and then developed nausea vomiting with diarrhea. She states other family has had similar symptoms. Patient denies fever or chills. Upon consultation, she had endorses both left and right upper quadrant abdominal tenderness on palpation. Patient denies chest pain or shortness of breath. Gallbladder ultrasound reveals sludge, HIDA scan within normal limits. LFTs were noted to be elevated as were troponin. Patient denies use of alcohol or tobacco products. Patient denies IV drug use or high risk sexual behaviors. Our service has been consulted to evaluate patient for elevated LFTs and abdominal discomfort. Review of Systems All other systems reviewed negative except as stated in HPI PMFSH - History History Provided By: Patient - Medical History Medical History: Medical History (Last Reviewed 09/28/18 @ 02:55 by ALONZO Fitzgerald) Asthma Hypertension Hypothyroid - Surgical History Surgical History: Surgical History (Last Reviewed 09/28/18 @ 02:55 by ALONZO Fitzgerald) No history of previous surgery - Family History Family History: Family History (Last Reviewed 09/27/18 @ 16:26 by Matty Magdaleno MD) Other Heart disease - Tobacco History Second Hand Smoke Exposure: No Tobacco Use In Past 30 Days: No Smoking Status: Never smoker - Alcohol History How Often Do You Have a Drink Containing Alcohol: Never - Substance Use History Substance History: No History of Abuse - Travel History Recent Travel in the [place] Within the Last 8 Weeks: No Recent Travel Out of the Country Within the Last 8 Weeks: No - Immunization History Tetanus Immunization: <5 Years Hx Influenza Vaccine This Season: Yes Medications and Allergies Active Medications: Active Medications Acetaminophen (Tylenol) 650 mg PO Q4H PRN PRN Reason: Temp > 100.4 Last Admin: 09/28/18 06:34 Dose: 650 mg Al Hydroxide/Mg Hydroxide (Milk Of Magnyael Liq) 30 ml PO Q12H PRN PRN Reason: Mild Constipation Aspirin (Ecotrin) 81 mg PO DAILY [facility] Bisacodyl (Dulcolax Supp) 10 mg RECTAL DAILY PRN PRN Reason: SEVERE CONSITIPATION Budesonide/Formoterol Fumarate (Symbicort 80/4.5 Mcg Inh) 2 puff INH BID [facility] Last Admin: 09/28/18 20:52 Dose: Not Given Enalaprilat (Vasotec Inj) 1.25 mg IV.PUSH Q6H PRN PRN Reason: SBP>160, DBP>90 Last Admin: 09/28/18 13:07 Dose: 1.25 mg Famotidine (Pepcid Pf Inj) 20 mg IV.PUSH Q12HR [facility] Last Admin: 09/28/18 20:51 Dose: Not Given Sodium Chloride (Ns Inj) 1,000 mls @ 100 mls/hr IV.CONT .Q10H [facility] Last Admin: 09/28/18 17:55 Dose: Not Given Lactulose (Lactulose Liq) 30 ml PO DAILY PRN PRN Reason: SEVERE CONSITIPATION Levothyroxine Sodium (Synthroid) 88 mcg PO DAILY@0700 [facility] Last Admin: 09/28/18 11:45 Dose: Not Given Metoprolol Tartrate (Lopressor) 25 mg PO BID [facility] Last Admin: 09/28/18 20:52 Dose: 25 mg Ondansetron HCl (Zofran Inj) 4 mg IV.PUSH Q6H PRN PRN Reason: NAUSEA OR VOMITING Sennosides (Senokot) 17.2 mg PO Q12H PRN PRN Reason: Moderate Constipation Sodium Chloride (Ns Flush) 2 ml IV.FLUSH BID [facility] Last Admin: 09/28/18 20:52 Dose: 2 ml Sodium Chloride (Ns Flush) 2 ml IV.FLUSH PRN PRN PRN Reason: FLUSH AFTER USING IV ACCESS Allergies Allergy/AdvReac Type Severity Reaction Status Date / Time amlodipine Allergy Intermediate Rash, Verified 09/28/18 07:09 Localized Home Medications Medication Instructions Recorded Confirmed Type amlodipine [Norvasc] 2.5 mg PO DAILY 09/27/18 09/27/18 History fluticasone-salmeterol [Advair 1 puff INHALATION Q12H 09/27/18 09/27/18 History Diskus] levothyroxine 88 mcg PO DAILY 09/27/18 09/27/18 History Exam Vital signs: Vital Signs 09/27/18 21:23 09/28/18 07:03 09/28/18 09:09 Temperature Pulse Rate 78 73 66 Respiratory Rate 16 18 18 Blood Pressure 126/71 174/84 H 156/76 H Pulse Oximetry 97 100 99 09/28/18 12:00 09/28/18 16:00 09/28/18 20:00 Temperature 97.7 F 97.9 F 97.0 F L Pulse Rate 72 84 76 Respiratory Rate 16 16 18 Blood Pressure 176/77 H 142/79 H 133/69 Pulse Oximetry 95 93 L 95 Intake & Output 09/28/18 09/28/18 09/29/18 06:59 18:59 06:59 Intake Total 1000 / 1000 1290 / 1290 Output Total 200 / 200 Balance 1000 / 1000 1090 / 1090 Intake: IV 1000 / 1000 1050 / 1050 NS Inj 1,000 ML @ 100 mls/hr IV 1000 / 1000 1000 / 1000 .CONT .Q10H MARK Rx#:[id number] Oral 240 / 240 Output: Urine 200 / 200 Other: # Voids 1 1 # Bowel Movements 0 - Constitutional no acute distress, average body habitus, cooperative - Routine HEENT Exam Head: Present: normocephalic Eye: Absent: conjunctival icterus ENT: Present: mucous membranes moist - Routine Neck Exam Present: supple - Routine Respiratory Exam Present: CTA bilaterally. Absent: accessory muscle use - Routine Cardiovascular Exam Present: RRR - Routine Abdominal Exam Present: soft, normoactive bowel sounds, tenderness. Absent: distended, guarding, firm - Routine Extremities Exam Absent: edema - Routine Skin Exam Present: dry, warm. Absent: pallor, jaundice - Routine Neurological Exam Present: alert, oriented X3 Results - Labs CBC & Chem 7: 09/28/18 06:31 09/28/18 06:31 Labs: Laboratory Results - last 24 hr 09/27/18 09/27/18 09/27/18 20:35 20:35 23:00 WBC RBC Hgb Hct MCV MCH MCHC RDW Plt Count MPV Neut % (Auto) Lymph % (Auto) [place] % (Auto) Eos % (Auto) Baso % (Auto) Neut # (Auto) Lymph # (Auto) [place] # (Auto) Eos # (Auto) Baso # (Auto) WBC Differential Differential Comment PT 10.1 INR 1.0 APTT 29.0 Sodium Potassium Chloride Carbon Dioxide Anion Gap BUN Creatinine Estimated GFR Random Glucose Calcium Total Bilirubin AST ALT Alkaline Phosphatase Total Creatine Kinase 52 Troponin I 0.20 H Total Protein Albumin TSH Urine Color Yellow Urine Clarity Clear Urine pH 6.0 Ur Specific [place] 1.045 H Urine Protein Negative Urine Glucose (UA) Negative Urine Ketones 20 Urine Occult Blood Negative Urine Nitrate Negative Urine Bilirubin Negative Urine Urobilinogen Less than 2 Ur Leukocyte Esterase Large H Urine RBC 4 H Urine WBC 4 Ur Squamous Epith Cells 4 Urine Mucus Few H Micro UA Comment Culture not ind Ur Microscopic Review Not Reportable Urine Culture Comments Culture not ind 09/28/18 09/28/18 09/28/18 01:45 06:31 06:31 WBC 8.2 RBC 4.49 Hgb 13.1 Hct 38.6 MCV 86.0 MCH 29.1 MCHC 33.8 RDW 13.0 Plt Count 265 MPV 9.3 Neut % (Auto) 60.2 Lymph % (Auto) 19.9 [place] % (Auto) 7.7 Eos % (Auto) 11.8 H Baso % (Auto) 0.4 Neut # (Auto) 5.0 Lymph # (Auto) 1.6 [place] # (Auto) 0.6 Eos # (Auto) 1.0 H Baso # (Auto) 0.0 WBC Differential . Differential Comment Auto diff final PT INR APTT Sodium 136 Potassium 4.1 Chloride 103 Carbon Dioxide 27.2 Anion Gap 6 BUN 17 Creatinine 0.61 Estimated GFR Greater than 89 Random Glucose 91 Calcium 8.7 Total Bilirubin 1.2 H AST 52 H ALT 77 H Alkaline Phosphatase 253 H Total Creatine Kinase Troponin I 0.14 H Total Protein 6.9 D Albumin 3.1 L TSH Urine Color Urine Clarity Urine pH Ur Specific [place] Urine Protein Urine Glucose (UA) Urine Ketones Urine Occult Blood Urine Nitrate Urine Bilirubin Urine Urobilinogen Ur Leukocyte Esterase Urine RBC Urine WBC Ur Squamous Epith Cells Urine Mucus Micro UA Comment Ur Microscopic Review Urine Culture Comments 09/28/18 06:31 WBC RBC Hgb Hct MCV MCH MCHC RDW Plt Count MPV Neut % (Auto) Lymph % (Auto) [place] % (Auto) Eos % (Auto) Baso % (Auto) Neut # (Auto) Lymph # (Auto) [place] # (Auto) Eos # (Auto) Baso # (Auto) WBC Differential Differential Comment PT INR APTT Sodium Potassium Chloride Carbon Dioxide Anion Gap BUN Creatinine Estimated GFR Random Glucose Calcium Total Bilirubin AST ALT Alkaline Phosphatase Total Creatine Kinase Troponin I Total Protein Albumin TSH 8.450 H Urine Color Urine Clarity Urine pH Ur Specific [place] Urine Protein Urine Glucose (UA) Urine Ketones Urine Occult Blood Urine Nitrate Urine Bilirubin Urine Urobilinogen Ur Leukocyte Esterase Urine RBC Urine WBC Ur Squamous Epith Cells Urine Mucus Micro UA Comment Ur Microscopic Review Urine Culture Comments - Imaging Impressions Bile Acid Absorption NM 09/28/18 00:00 CONCLUSION: 1. Unremarkable HIDA scan except for poor asymptomatic contraction after CCK. Cholangiopancreatography MRI 09/28/18 15:40 CONCLUSION: 1. Limited examination due to patient motion. 2. Apparent interval development of pericholecystic fluid without gallstones or significant gallbladder wall thickening. HIDA scan from earlier today demonstrates a patent cystic duct. Although pericholecystic fluid is nonspecific , cannot exclude acalculus cholecystitis. Assessment and Plan (1) Transaminitis Status: Acute Code(s): R74.0 - Nonspecific elevation of levels of transaminase and lactic acid dehydrogenase [LDH] (2) Epigastric pain Status: Resolved Code(s): R10.13 - Epigastric pain - Plan Patient is a pleasant 73-year-old female with past medical history significant for hypertension and hypothyroidism. Patient also has met history significant for asthma. Patient denies significant surgical history. Patient presented to [facility] with complaint of upper abdominal bandlike pain onset 5 days ago. Patient also endorses she returned from a trip to [place] about 2 weeks ago and then developed nausea vomiting with diarrhea. She states other family has had similar symptoms. Patient denies fever or chills. Upon consultation, she had endorses both left and right upper quadrant abdominal tenderness on palpation. Patient denies chest pain or shortness of breath. Gallbladder ultrasound reveals sludge, HIDA scan within normal limits. LFTs were noted to be elevated as were troponin. Patient denies use of alcohol or tobacco products. Patient denies IV drug use or high risk sexual behaviors. Our service has been consulted to evaluate patient for elevated LFTs and abdominal discomfort. Epigastric pain--patient reports pain "better". Still remains mildly tender in epigastrium on exam Elevated troponin-cardiology consult noted, patient may require diagnostic catheterization Transaminitis-LFTs trending downward-liver workup ordered Total bilirubin 1.2 AST 52 ALT 77 alk phos 253 Troponin 0 0.20-->0.14 Plan Cardiac diet Consider EGD post cardiac clearance and workup MRCP pending Monitor LFTs AFP pending Liver immunology pending Hepatitis panel pending Analgesics and antiemetics as per attending Avoid hepatotoxins Supportive care Further recommendations to follow This patient has been seen by myself and Dr. Arroyo and this note is written on his behalf - Attending Attestation Dr. Arroyo
[2018-09-28 21:45] LABS: % Iron Saturation 12.2 % (20-50); Alpha Fetoprotein Tumor Marker 1.9 ng/mL (0.5-8.0)
[2018-09-28 22:56] LABS: Hepatitis A IgM Antibody Nonreactive (Nonreactive); Hepatitits B Surface Antigen Nonreactive (Nonreactive)
[2018-09-29] MEDS: Sod Chloride 0.9% Inj 1,000 ML IV.CONT SCH (02:04)
[2018-09-29] MEDS: Levothyroxine 88 MCG Tablet PO SCH (06:13)
[2018-09-29] MEDS: Famotidine PF Inj 20 MG/2 ML Vial IV.PUSH SCH (08:57)
[2018-09-29] MEDS: Metoprolol Tartrate 25 MG Tablet PO SCH (08:57)
[2018-09-29] MEDS: Budesonide-Formoterol 80/4.5 MCG 6.9 GM Inhaler INH SCH (08:58)
--- NOTE | 2018-09-29 09:04 | P.DS ---
<Robert Bales S - Last Filed: 09/29/18 08:56> Date of admission: 09/27/18 19:38 Primary care physician: Sylvia Piña Brief History from admission: 73 y/o female with a history of HTN, asthma, and hypothyroidism presented to the ER with complaints of epigastric pain for the past 5 days. She states the pain is a constant, dull, 9/10, mid epigastric region, worse with food, with radiation that extends to her back, with nausea, upon examination her pain is decreased to a 3. She denies any fevers or chills. No changes in bowel movements, denies dysuria. Patient update on day of discharge: No chest pain or shortness of breath. Ambulating without difficulty. Tolerating diet with no nausea or abdominal pain. DS: Diagnosis - Discharge Diagnosis (1) Epigastric pain Status: Resolved Diagnosis: Principal (2) Elevated troponin Status: Acute Diagnosis: Principal (3) Hypothyroid Status: Chronic Diagnosis: Secondary (4) Essential hypertension Status: Chronic Diagnosis: Secondary (5) Pulmonary nodules Status: Acute Diagnosis: Secondary (6) Transaminitis Status: Acute Diagnosis: Secondary DS: Medications - Discharge Medications Prescriptions: aspirin 81 mg PO DAILY #90 tab metoprolol tartrate 25 mg PO BID #60 tab ranitidine HCl 150 mg PO BID PRN #60 tab PRN Reason: Acid Reflux DS: Summary Hospital Course: Admitted for band-like epigastric pain radiating to the back. CT chest negative for dissection, revealed several incidental pulmonary nodules. ECG normal, troponin mildly elevated. Cardiology was consulted who recommended obtaining cardiac stress test as outpatient, starting aspirin and beta-tiana. On laboratory evaluation it was noted her LFTs were elevated slightly. GI was consulted, and a HIDA scan and MRCP were performed which showed mild gallbladder thickening but were otherwise unremarkable. Recommended consideration of endoscopy, however at this time patient is asymptomatic so we recommend deferring this for now. Viral hepatitis panel was negative, and LFTs remained mildly elevated but stable. Clinically she remained asymptomatic at time of discharge. Recommend follow up with primary care physician to make sure abdominal pain doesn't recur or need further work-up, for managing her hypertension, and for repeating the CT scan for the pulmonary nodules ( radiologist recommended repeat exam in 6-12 months). - Time Spent with Patient Total time spent providing and/or coordinating discharge services: Less than 30 minutes - Quality: VTE Deep Vein Thrombosis/Pulmonary Embolism Present on Admission: No Exam Vital signs: Vital Signs 09/28/18 09:09 09/28/18 10:40 09/28/18 12:00 Temperature 98.0 F 97.7 F Pulse Rate 66 71 72 Respiratory Rate 18 17 16 Blood Pressure 156/76 H 130/64 176/77 H Pulse Oximetry 99 96 95 09/28/18 16:00 09/28/18 20:00 09/28/18 22:40 Temperature 97.9 F 97.0 F L 98.0 F Pulse Rate 84 77 71 Respiratory Rate 16 18 17 Blood Pressure 142/79 H 133/69 130/64 Pulse Oximetry 93 L 95 96 09/29/18 00:00 09/29/18 04:00 09/29/18 05:25 Temperature 98.3 F Pulse Rate 71 84 81 Respiratory Rate 17 Blood Pressure 150/78 H Pulse Oximetry 96 Intake & Output 09/28/18 09/29/18 09/29/18 18:59 06:59 18:59 Intake Total 1290 / 1290 1120 / 1120 Output Total 200 / 200 Balance 1090 / 1090 1120 / 1120 Weight 61.2 kg Intake: IV 1050 / 1050 1000 / 1000 NS Inj 1,000 ML @ 100 mls/hr IV 1000 / 1000 1000 / 1000 .CONT .Q10H MARK Rx#:[id number] Oral 240 / 240 120 / 120 Output: Urine 200 / 200 Other: # Voids 1 350 # Bowel Movements 0 0 Narrative: GENERAL: WDWN adult female, NAD, comfortable SKIN: Warm and dry. no open lesions EYES: No scleral icterus. No injection or drainage. NECK: Supple, trachea midline. No JVD or lymphadenopathy. CARDIOVASCULAR: NRRR without murmurs, gallops, or rubs. RESPIRATORY: Breath sounds equal bilaterally. No crackles or wheezes. No accessory muscle use. GASTROINTESTINAL: Abdomen soft, NDNT. MUSCULOSKELETAL: No cyanosis, or edema. Ambulating without difficulty. Results Procedures completed during hospitalization: MRCP - 09/28/18 Labs on day of discharge: Labs from last 24 hours 09/28/18 09/28/18 09/28/18 20:24 20:24 20:24 Iron 33 L TIBC 270 % Saturation 12.2 L Ferritin 119 Ceruloplasmin Pending Tumor Marker AFP 1.9 TSH Rheumatoid Factor Pending JACK Screen Pending JACK Pattern Pending SS-A Antibody Pending SS-B Antibody Pending Sm (Alvarenga) Antibody Pending SM/SLITTER AND CUTTER OPERATOR Antibody Pending Scl-70 Antibody Pending Anti-ds DNA (Crithidia) Pending Mitochondria M2 IgG Ab Pending Anti-Smooth Muscle Ab Pending Hepatitis A IgM Ab Nonreactive Hep Bs Antigen Nonreactive Hep B Core IgM Ab Nonreactive Hep C IgG Ab Nonreactive 09/28/18 06:31 Iron TIBC % Saturation Ferritin Ceruloplasmin Tumor Marker AFP TSH 8.450 H Rheumatoid Factor JACK Screen JACK Pattern SS-A Antibody SS-B Antibody Sm (Alvarenga) Antibody SM/SLITTER AND CUTTER OPERATOR Antibody Scl-70 Antibody Anti-ds DNA (Crithidia) Mitochondria M2 IgG Ab Anti-Smooth Muscle Ab Hepatitis A IgM Ab Hep Bs Antigen Hep B Core IgM Ab Hep C IgG Ab - Impressions ITS Impressions Gallbladder Ultrasound 09/27/18 16:23 CONCLUSION: 1. Gallbladder sludge. 2. Right renal cyst. 3. Echogenic portal triads may indicate underlying hepatitis. This can be correlated with laboratory values. Thoracic Aorta CT 09/27/18 17:52 CONCLUSION: 1. Aorta is normal in caliber without dissection. 2. Multiple tiny pulmonary nodules. These measure 2 to 5 mm in size. Current Fleischner guidelines suggest a repeat CT of the thorax in 6-12 months to document stability. 3. 2.6 x 1.8 cm nodule within the left axilla adjacent to the left lateral margin of the pectoralis major muscle adjacent to the chest wall. This is nonspecific in its CT appearance. Clinical palpation of the nodule is suggested. An outpatient follow-up ultrasound of the left axilla could be considered as follow-up. Chest X-Ray 09/27/18 17:53 CONCLUSION: No acute findings. Bile Acid Absorption NM 09/28/18 00:00 CONCLUSION: 1. Unremarkable HIDA scan except for poor asymptomatic contraction after CCK. Cholangiopancreatography MRI 09/28/18 15:40 CONCLUSION: 1. Limited examination due to patient motion. 2. Apparent interval development of pericholecystic fluid without gallstones or significant gallbladder wall thickening. HIDA scan from earlier today demonstrates a patent cystic duct. Although pericholecystic fluid is nonspecific , cannot exclude acalculus cholecystitis. <Bg Malloy - Last Filed: 09/29/18 15:34> Date of admission: 09/27/18 19:38 Primary care physician: Sylvia Piña DS: Diagnosis - Discharge Diagnosis (1) Epigastric pain Status: Resolved (2) Elevated troponin Status: Acute (3) Hypothyroid Status: Chronic (4) Essential hypertension Status: Chronic (5) Pulmonary nodules Status: Acute DS: Summary Hospital Course: The exam, history, and the medical decision-making described in the above note were completed with the assistance of the resident physician. I reviewed and agree with the findings presented. I attest that I had a [id number] encounter with the patient on the same day, and personally performed and documented my assessment and findings in the medical record. Patient seen and examined. She reports epigastric pain has significantly improved. No shortness of breath or chest pressure. She has not tried a diet yet. GENERAL: This is a well-nourished, well-developed patient, in no apparent distress. CARDIOVASCULAR: Normal rate and regular rhythm without murmurs, gallops, or rubs. RESPIRATORY: Good respiratory efforts. Breath sounds equal and clear to auscultation bilaterally. GASTROINTESTINAL: Abdomen soft, mild tenderness to palpation in the midepigastric region. Normal active bowel sounds MUSCULOSKELETAL: Extremities without cyanosis, or edema. NEURO: Alert & Oriented x4 to person, place, time, situation. Moves all ext x4 PSYCH: Appropriate mood and affect. A/P: Patient admitted with epigastric pain, elevated cardiac enzymes with concern for ACS. Symptoms more related to gastritis. Symptoms quickly resolved. She was seen by cardiology and patient and family wished to proceed with outpatient stress test. She will follow-up outpatient with PCP and GI to consider endoscopy. - Time Spent with Patient Total time spent providing and/or coordinating discharge services: Exam Vital signs: Vital Signs 09/28/18 16:00 09/28/18 20:00 09/28/18 22:40 Temperature 97.9 F 97.0 F L 98.0 F Pulse Rate 84 77 71 Respiratory Rate 16 18 17 Blood Pressure 142/79 H 133/69 130/64 Pulse Oximetry 93 L 95 96 09/29/18 00:00 09/29/18 04:00 09/29/18 05:25 Temperature 98.3 F Pulse Rate 71 84 81 Respiratory Rate 17 Blood Pressure 150/78 H Pulse Oximetry 96 09/29/18 08:00 Temperature 97.9 F Pulse Rate 78 Respiratory Rate 16 Blood Pressure 163/74 H Pulse Oximetry 95 Intake & Output 09/28/18 09/29/18 09/29/18 18:59 06:59 18:59 Intake Total 1290 / 1290 1120 / 1120 Output Total 200 / 200 Balance 1090 / 1090 1120 / 1120 Weight 61.2 kg Intake: IV 1050 / 1050 1000 / 1000 NS Inj 1,000 ML @ 100 mls/hr IV 1000 / 1000 1000 / 1000 .CONT .Q10H MARK Rx#:[id number] Oral 240 / 240 120 / 120 Output: Urine 200 / 200 Other: # Voids 1 350 # Bowel Movements 0 0 Results Labs on day of discharge: Labs from last 24 hours 09/28/18 09/28/18 09/28/18 20:24 20:24 20:24 Iron 33 L TIBC 270 % Saturation 12.2 L Ferritin 119 Ceruloplasmin Pending Tumor Marker AFP 1.9 Rheumatoid Factor Pending JACK Screen Pending JACK Pattern Pending SS-A Antibody Pending SS-B Antibody Pending Sm (Alvarenga) Antibody Pending SM/SLITTER AND CUTTER OPERATOR Antibody Pending Scl-70 Antibody Pending Anti-ds DNA (Crithidia) Pending Mitochondria M2 IgG Ab Pending Anti-Smooth Muscle Ab Pending Hepatitis A IgM Ab Nonreactive Hep Bs Antigen Nonreactive Hep B Core IgM Ab Nonreactive Hep C IgG Ab Nonreactive - Impressions ITS Impressions Gallbladder Ultrasound 09/27/18 16:23 CONCLUSION: 1. Gallbladder sludge. 2. Right renal cyst. 3. Echogenic portal triads may indicate underlying hepatitis. This can be correlated with laboratory values. Thoracic Aorta CT 09/27/18 17:52 CONCLUSION: 1. Aorta is normal in caliber without dissection. 2. Multiple tiny pulmonary nodules. These measure 2 to 5 mm in size. Current Fleischner guidelines suggest a repeat CT of the thorax in 6-12 months to document stability. 3. 2.6 x 1.8 cm nodule within the left axilla adjacent to the left lateral margin of the pectoralis major muscle adjacent to the chest wall. This is nonspecific in its CT appearance. Clinical palpation of the nodule is suggested. An outpatient follow-up ultrasound of the left axilla could be considered as follow-up. Chest X-Ray 09/27/18 17:53 CONCLUSION: No acute findings. Bile Acid Absorption NM 09/28/18 00:00 CONCLUSION: 1. Unremarkable HIDA scan except for poor asymptomatic contraction after CCK. Cholangiopancreatography MRI 09/28/18 15:40 CONCLUSION: 1. Limited examination due to patient motion. 2. Apparent interval development of pericholecystic fluid without gallstones or significant gallbladder wall thickening. HIDA scan from earlier today demonstrates a patent cystic duct. Although pericholecystic fluid is nonspecific , cannot exclude acalculus cholecystitis. Discharge Plan - Discharge Order Discharge Orders: Discharge Order (Routine); Ordered 09/29/18 Ordered By: Robert Abraham R3 Cardiology Clear for Discharge (Routine); Ordered 09/29/18 Ordered By: November Shadeed - Discharge Details Anticipated Discharge Date: 09/29/18 - Physicians Team Primary Care Provider: Sylvia Piña Attending Provider: Bg Malloy Other Providers: MOA[facility],Insurance ; Ernesto Johnson MD
--- NOTE | 2018-09-29 09:46 | P.PNCA ---
Subjective Interval history: Patient is doing well, tolerating PO diet. Denies any abdominal pain or nausea this Am. No chest pain or SOB Medications and Allergies Allergies Allergy/AdvReac Type Severity Reaction Status Date / Time amlodipine Allergy Intermediate Rash, Verified 09/28/18 07:09 Localized Home Medications Medication Instructions Recorded Confirmed Type fluticasone-salmeterol [Advair 1 puff INHALATION Q12H 09/27/18 09/27/18 History Diskus] levothyroxine 88 mcg PO DAILY 09/27/18 09/27/18 History Active Medications: Active Medications Acetaminophen (Tylenol) 650 mg PO Q4H PRN PRN Reason: Temp > 100.4 Last Admin: 09/28/18 06:34 Dose: 650 mg Al Hydroxide/Mg Hydroxide (Milk Of Magnesia Liq) 30 ml PO Q12H PRN PRN Reason: Mild Constipation Aspirin (Ecotrin) 81 mg PO DAILY [facility] Last Admin: 09/29/18 08:57 Dose: 81 mg Bisacodyl (Dulcolax Supp) 10 mg RECTAL DAILY PRN PRN Reason: SEVERE CONSITIPATION Budesonide/Formoterol Fumarate (Symbicort 80/4.5 Mcg Inh) 2 puff INH BID [facility] Last Admin: 09/29/18 08:58 Dose: Not Given Enalaprilat (Vasotec Inj) 1.25 mg IV.PUSH Q6H PRN PRN Reason: SBP>160, DBP>90 Last Admin: 09/28/18 13:07 Dose: 1.25 mg Famotidine (Pepcid Pf Inj) 20 mg IV.PUSH Q12HR [facility] Last Admin: 09/29/18 08:57 Dose: 20 mg Sodium Chloride (Ns Inj) 1,000 mls @ 100 mls/hr IV.CONT .Q10H [facility] Last Admin: 09/29/18 02:04 Dose: 100 mls/hr Lactulose (Lactulose Liq) 30 ml PO DAILY PRN PRN Reason: SEVERE CONSITIPATION Levothyroxine Sodium (Synthroid) 88 mcg PO DAILY@0700 [facility] Last Admin: 09/29/18 06:13 Dose: 88 mcg Metoprolol Tartrate (Lopressor) 25 mg PO BID [facility] Last Admin: 09/29/18 08:57 Dose: 25 mg Ondansetron HCl (Zofran Inj) 4 mg IV.PUSH Q6H PRN PRN Reason: NAUSEA OR VOMITING Sennosides (Senokot) 17.2 mg PO Q12H PRN PRN Reason: Moderate Constipation Sodium Chloride (Ns Flush) 2 ml IV.FLUSH BID [facility] Last Admin: 09/29/18 08:57 Dose: 2 ml Sodium Chloride (Ns Flush) 2 ml IV.FLUSH PRN PRN PRN Reason: FLUSH AFTER USING IV ACCESS Physical Exam Vital signs: Vital Signs 09/28/18 10:40 09/28/18 12:00 09/28/18 16:00 Temperature 98.0 F 97.7 F 97.9 F Pulse Rate 71 72 84 Respiratory Rate 17 16 16 Blood Pressure 130/64 176/77 H 142/79 H Pulse Oximetry 96 95 93 L 09/28/18 20:00 09/28/18 22:40 09/29/18 00:00 Temperature 97.0 F L 98.0 F Pulse Rate 77 71 71 Respiratory Rate 18 17 Blood Pressure 133/69 130/64 Pulse Oximetry 95 96 09/29/18 04:00 09/29/18 05:25 Temperature 98.3 F Pulse Rate 84 81 Respiratory Rate 17 Blood Pressure 150/78 H Pulse Oximetry 96 Intake & Output 09/28/18 09/29/18 09/29/18 18:59 06:59 18:59 Intake Total 1290 / 1290 1120 / 1120 Output Total 200 / 200 Balance 1090 / 1090 1120 / 1120 Weight 61.2 kg Intake: IV 1050 / 1050 1000 / 1000 NS Inj 1,000 ML @ 100 mls/hr IV 1000 / 1000 1000 / 1000 .CONT .Q10H [facility] Rx#:[id number] Oral 240 / 240 120 / 120 Output: Urine 200 / 200 Other: # Voids 1 350 # Bowel Movements 0 0 - Constitutional no acute distress, average body habitus, cooperative - Routine HEENT Exam Head: Present: normocephalic, atraumatic Eye: Present: EOMI, PERRL, normal accommodation ENT: Present: mucous membranes moist - Routine Neck Exam Present: supple - Routine Respiratory Exam Present: CTA bilaterally - Routine Cardiovascular Exam Present: RRR - Routine Abdominal Exam Present: soft - Routine Extremities Exam Present: full ROM, pulses intact, normal capillary refill - Routine Skin Exam Present: intact - Routine Neurological Exam Present: alert, oriented X3 - Detailed Neurological Exam: Coma Scale Eye Opening: Spontaneous Verbal Response: Oriented Motor Response: Obey commands [place] Coma Scale Total: 15 Results 09/28/18 06:31 09/28/18 06:31 Cardiac Enzymes 09/27/18 09/27/18 09/28/18 Range/Units 16:46 20:35 01:45 AST 38 H (15-37) U/L Troponin I 0.16 H 0.20 H 0.14 H (0.02-0.05) ng/mL 09/28/18 Range/Units 06:31 AST 52 H (15-37) U/L Troponin I (0.02-0.05) ng/mL Coagulation 09/27/18 Range/Units 20:35 PT 10.1 (9.8-11.6) sec APTT 29.0 (23.4-31.7) sec CBC 09/27/18 09/28/18 Range/Units 16:46 06:31 WBC 10.7 8.2 (4.0-11.0) th/mm3 RBC 4.81 4.49 (4.00-5.30) mil/mm3 Hgb 14.1 13.1 (11.6-15.3) gm/dL Hct 41.7 38.6 (35.0-46.0) % Plt Count 291 265 (150-450) th/mm3 Neut # (Auto) 7.8 H 5.0 (1.8-7.7) th/mm3 Lymph # (Auto) 1.3 1.6 (1.0-4.8) th/mm3 [place] # (Auto) 0.7 0.6 (0.0-0.9) th/mm3 Eos # (Auto) 0.9 H 1.0 H (0.0-0.4) th/mm3 Baso # (Auto) 0.1 0.0 (0.0-0.2) th/mm3 Comprehensive Metabolic Panel 09/27/18 09/28/18 Range/Units 16:46 06:31 Sodium 132 L 136 (136-145) meq/L Potassium 4.2 4.1 (3.5-5.1) meq/L Chloride 101 103 (98-107) meq/L Carbon Dioxide 24.3 27.2 (21.0-32.0) meq/L BUN 23 H 17 (7-18) mg/dL Creatinine 0.59 0.61 (0.50-1.00) mg/dL Calcium 8.9 8.7 (8.5-10.1) mg/dL AST 38 H 52 H (15-37) U/L ALT 64 H 77 H (10-53) U/L Alkaline Phosphatase 217 H 253 H (45-117) U/L Total Protein 7.5 6.9 D (6.4-8.2) g/dL Albumin 3.5 3.1 L (3.4-5.0) g/dL Intake and Output 09/28/18 09/29/18 09/29/18 22:59 06:59 14:59 Intake Total 240 / 240 1120 / 1120 Output Total 200 / 200 Balance 40 / 40 1120 / 1120 Intake: IV 1000 / 1000 NS Inj 1,000 ML @ 100 mls/hr IV 1000 / 1000 .CONT .Q10H [facility] Rx#:[id number] Oral 240 / 240 120 / 120 Output: Urine 200 / 200 Other: # Voids 1 350 # Bowel Movements 0 0 Weight 61.2 kg - Imaging and Cardiology Imaging: Impressions Gallbladder Ultrasound 09/27/18 16:23 CONCLUSION: 1. Gallbladder sludge. 2. Right renal cyst. 3. Echogenic portal triads may indicate underlying hepatitis. This can be correlated with laboratory values. Thoracic Aorta CT 09/27/18 17:52 CONCLUSION: 1. Aorta is normal in caliber without dissection. 2. Multiple tiny pulmonary nodules. These measure 2 to 5 mm in size. Current Fleischner guidelines suggest a repeat CT of the thorax in 6-12 months to document stability. 3. 2.6 x 1.8 cm nodule within the left axilla adjacent to the left lateral margin of the pectoralis major muscle adjacent to the chest wall. This is nonspecific in its CT appearance. Clinical palpation of the nodule is suggested. An outpatient follow-up ultrasound of the left axilla could be considered as follow-up. Chest X-Ray 09/27/18 17:53 CONCLUSION: No acute findings. Bile Acid Absorption NM 09/28/18 00:00 CONCLUSION: 1. Unremarkable HIDA scan except for poor asymptomatic contraction after CCK. Cholangiopancreatography MRI 09/28/18 15:40 CONCLUSION: 1. Limited examination due to patient motion. 2. Apparent interval development of pericholecystic fluid without gallstones or significant gallbladder wall thickening. HIDA scan from earlier today demonstrates a patent cystic duct. Although pericholecystic fluid is nonspecific , cannot exclude acalculus cholecystitis. Assessment and Plan - Plan Assessment Elevated troponin Abdominal pain Elevated LFTs Hypertension Plan -Patient is chest pain-free, mild elevation in troponins, no cardiac history, EKG normal. Nuclear stress test verses heart cath discussed in detail. Will plan to check cardiac PET scan outpatient. -We DC home on low-dose beta-tiana and baby aspirin. Will hold off on statin at this time due to elevated LFTs. -Patient is clear from cardiology for DC home, she will need a hospital follow up in 1-2 weeks. -Has abdominal discomfort and LFTs and gallbladder sludge; no SOB or anginal pain will do cardiac workup for elevated troponin outpatient. Discussed with Becky Boyd in detail. Patient was seen and evaluated by Dr. Johnson who participated in care management and decision making The exam, history, and the medical decision-making described in the above note were completed with the assistance of the mid-level provider. I reviewed and agree with the findings presented. Doing better OK to d/c Code Status: Full Code Discussed Condition With: Dr. Johnson
[2018-09-29 09:57] VITALS: BP 163/74; PULSE 78; RESP 16; TEMP 97.9; O2SAT 95
--- NOTE | 2018-09-29 11:11 | P.PNGI ---
Subjective Interval history: Patient sitting in a chair No complaints of nausea vomiting no abdominal pain no blood in the stool Stated she is ready to go home and agrees to follow-up as an outpatient at the [facility] Physical Exam Vital signs: Vital Signs 09/28/18 12:00 09/28/18 16:00 09/28/18 20:00 Temperature 97.7 F 97.9 F 97.0 F L Pulse Rate 72 84 77 Respiratory Rate 16 16 18 Blood Pressure 176/77 H 142/79 H 133/69 Pulse Oximetry 95 93 L 95 09/28/18 22:40 09/29/18 00:00 09/29/18 04:00 Temperature 98.0 F Pulse Rate 71 71 84 Respiratory Rate 17 Blood Pressure 130/64 Pulse Oximetry 96 09/29/18 05:25 09/29/18 08:00 Temperature 98.3 F 97.9 F Pulse Rate 81 78 Respiratory Rate 17 16 Blood Pressure 150/78 H 163/74 H Pulse Oximetry 96 95 Intake & Output 09/28/18 09/29/18 09/29/18 18:59 06:59 18:59 Intake Total 1290 / 1290 1120 / 1120 Output Total 200 / 200 Balance 1090 / 1090 1120 / 1120 Weight 61.2 kg Intake: IV 1050 / 1050 1000 / 1000 NS Inj 1,000 ML @ 100 mls/hr IV 1000 / 1000 1000 / 1000 .CONT .Q10H [facility] Rx#:[id number] Oral 240 / 240 120 / 120 Output: Urine 200 / 200 Other: # Voids 1 350 # Bowel Movements 0 0 - Constitutional no acute distress - Routine HEENT Exam Head: Present: normocephalic - Routine Neck Exam Present: supple - Routine Respiratory Exam Present: CTA bilaterally - Routine Cardiovascular Exam Present: RRR, S1, S2 - Routine Abdominal Exam Present: soft, normoactive bowel sounds, distended. Absent: tenderness - Routine Extremities Exam Present: pulses intact, normal capillary refill - Routine Skin Exam Present: intact - Routine Neurological Exam Present: alert, oriented X3 Results - Labs CBC & Chem 7: 09/28/18 06:31 09/28/18 06:31 Laboratory Results - last 24 hr 09/28/18 09/28/18 20:24 20:24 Iron 33 L TIBC 270 % Saturation 12.2 L Ferritin 119 Tumor Marker AFP 1.9 Hepatitis A IgM Ab Nonreactive Hep Bs Antigen Nonreactive Hep B Core IgM Ab Nonreactive Hep C IgG Ab Nonreactive - Imaging Impressions Bile Acid Absorption NM 09/28/18 00:00 CONCLUSION: 1. Unremarkable HIDA scan except for poor asymptomatic contraction after CCK. Cholangiopancreatography MRI 09/28/18 15:40 CONCLUSION: 1. Limited examination due to patient motion. 2. Apparent interval development of pericholecystic fluid without gallstones or significant gallbladder wall thickening. HIDA scan from earlier today demonstrates a patent cystic duct. Although pericholecystic fluid is nonspecific , cannot exclude acalculus cholecystitis. - Procedures MRCP - 09/28/18 Assessment and Plan (1) Transaminitis Status: Acute Code(s): R74.0 - Nonspecific elevation of levels of transaminase and lactic acid dehydrogenase [LDH] (2) Epigastric pain Status: Resolved Code(s): R10.13 - Epigastric pain - Plan Patient is a pleasant 73-year-old female with past medical history significant for hypertension and hypothyroidism. Patient also has met history significant for asthma. Patient denies significant surgical history. Patient presented to [facility] with complaint of upper abdominal bandlike pain onset 5 days ago. Patient also endorses she returned from a trip to [place] about 2 weeks ago and then developed nausea vomiting with diarrhea. She states other family has had similar symptoms. Patient denies fever or chills. Upon consultation, she had endorses both left and right upper quadrant abdominal tenderness on palpation. Patient denies chest pain or shortness of breath. Gallbladder ultrasound reveals sludge, HIDA scan within normal limits. LFTs were noted to be elevated as were troponin. Patient denies use of alcohol or tobacco products. Patient denies IV drug use or high risk sexual behaviors. Our service has been consulted to evaluate patient for elevated LFTs and abdominal discomfort. Epigastric pain--patient reports pain "better". Still remains mildly tender in epigastrium on exam Elevated troponin-cardiology consult noted, patient may require diagnostic catheterization Transaminitis-LFTs trending downward-liver workup ordered Total bilirubin 1.2 AST 52 ALT 77 alk phos 253 Troponin 0 0.20-->0.14 09/29/2018 Assessment Questionable liver cirrhosis with transaminitis Cholelithiasis Acalculous cholecystitis -MRCP 09/28/2018 showed Limited examination due to patient motion. Apparent interval development of pericholecystic fluid without gallstones or significant gallbladder wall thickening. HIDA scan from earlier today demonstrates a patent cystic duct. Although pericholecystic fluid is nonspecific, cannot exclude acalculus cholecystitis Elevated troponin-to go home on anticoagulants aspirin Plavix Labs today AST 52 ALT 77 alkaline phos 253 Ultrasound gallbladder 09/28/2018 showed Gallbladder sludge. Right renal cyst. Echogenic portal triads may indicate underlying hepatitis. This can be correlated with laboratory values. Plan Cardiac diet Patient is okay to go home today and can have EGD as an outpatient to rule out esophageal varices Monitor LFTs We will check labs and monitor as an outpatient Analgesics and antiemetics as per attending Avoid hepatotoxins Supportive care GI will signed off patient can follow-up 2 weeks after discharge [facility] office This patient has been seen by myself and Dr. Arroyo and this note is written on his behalf - Attending Attestation Dr. Arroyo
[2018-09-30 13:56] LABS: Smooth Muscle Total Auto Abs Negative (Negative)
[2018-09-30 19:52] LABS: Ceruloplasmin 35 mg/dL (18-53)
[2018-10-02 23:53] LABS: DS DNA Ab (Crithidia) POSITIVE (NEGATIVE)
== END 2018-09-29 11:14 | disposition home or self-care (01) | DRG 392 ==
LOC: NEPB 15:12 → NEDA 15:12 → OBSVTOIN 19:38 → NEDH 09-28 00:28 → NEDA 09-28 08:08 → N04 09-28 12:07
PROVIDERS: ADMIT Family Medicine; ATTEND Family Medicine
CPT/HCPCS: 71010; 71045; 71275; 74175; 74181; 76377; 76705; 78226; 80053; 80074; 81001; 82105; 82390; 82550; 82728; 83520; 83540; 83550; 83690; 83735; 84443; 84484; 85025; 85610; 85730; 86038; 86039; 86225; 86235; 86255; 86256; 86431; 90774; 90775; 90784; 93005; 96374; 96375; 99285; A9513; A9537; C1097; C8952; J2270; J2405; J2805; J7030; Q9967